=== PATIENT | female | born 1960 | race Caucasian/White ===

== ENCOUNTER 2022-09-02 11:59 | Emergency (ER) | payer MEDICAID ==
[~2022-09-02] VITALS: Ht 167.6 cm; Wt 113.6 kg
[2022-09-02] MEDS ORDERED: glycopyrrolate 0.2mg/ml inj IV ONE (13:15)
[2022-09-02] MEDS ORDERED: normal saline 1000ml 1,000 ML IV ONE (13:15)
[2022-09-02 13:25] LABS: BASOPHILS % (AUTO) 0.3 % (0-1); EOSINOPHILS % (AUTO) 0.4 % (0-6); HEMATOCRIT 47.8 % (35.0-45.0); HEMOGLOBIN 16.1 g/dl (12.0-16.0); LYMPHOCYTES % (AUTO) 19.5 % (21-51); MEAN CORPUSCULAR HEMOGLOBIN 30.3 PG (27.0-31.0); MEAN CORPUSCULAR HGB CONC 33.7 g/dL (33.0-36.5); MEAN CORPUSCULAR VOLUME 89.8 FL (78-98); MEAN PLATELET VOLUME 9.8 FL (7.4-10.4); MONOCYTES # (AUTO) 1.2 X10'3 (0-0.9); MONOCYTES % (AUTO) 11.7 % (2-12); NEUTROPHILS % (AUTO) 68.1 % (42-75); PLATELET COUNT 273 X10'3 (140-440); RED BLOOD COUNT 5.32 X10'6 (4.20-5.60); RED CELL DISTRIBUTION WIDTH 14.1 % (11.5-14.5); WHITE BLOOD COUNT 10.3 X10'3 (4.5-11.0)
[2022-09-02 13:43] LABS: ALANINE AMINOTRANSFERASE 40 U/L (12-78); ALBUMIN 4.2 G/DL (3.4-5.0); ALBUMIN/GLOBULIN RATIO 1.1 (1.1-1.5); ALKALINE PHOSPHATASE 101 IU/L (46-116); ANION GAP 12 (8-16); ASPARTATE AMINO TRANSFERASE 39 U/L (10-37); BILIRUBIN,TOTAL 0.8 MG/DL (0.1-1.0); BLOOD UREA NITROGEN 38 MG/DL (7-18); BUN/CREATININE RATIO 13.1 (10.0-20.0); CALCIUM 10.2 MG/DL (8.5-10.1); CHLORIDE 103 MMOL/L (99-107); CREATININE 2.89 MG/DL (0.40-0.90); GLUCOSE 122 MG/DL (70-104); POTASSIUM 3.4 MMOL/L (3.5-5.1); SODIUM 140 MMOL/L (135-145); TOTAL CARBON DIOXIDE 24.6 MMOL/L (24-32); TOTAL PROTEIN 7.9 G/DL (6.4-8.2); eGFR 16 ML/MIN
[2022-09-02] MEDS ORDERED: LOPE-144 PO (13:55)
[2022-09-02] MEDS ORDERED: DICY10CA88 PO (13:55)
[2022-09-02] MEDS ORDERED: ONDA4TAB12 PO (13:55)
[2022-09-02 14:31] VITALS: BP 137/92
== END 2022-09-02 14:33 | disposition home or self-care (01) ==
LOC: ER 12:00
DX: E86.0 Dehydration (principal); R19.7 Diarrhea, unspecified; N18.9 Chronic kidney disease, unspecified; F15.20 Other stimulant dependence, uncomplicated
CPT/HCPCS: 36415; 80053; 84145; 85025; 96374; 99283; J3490; J7030